=== PATIENT | female | born 1955 | race Caucasian/White ===

== ENCOUNTER 2016-10-14 16:02 | Emergency (ER) | payer OTHER ==
[2016-10-14 16:03] VITALS: O2SAT 93
[2016-10-14 16:24] VITALS: BP 146/82; PULSE 76; RESP 18; TEMP 98.3
== END 2016-10-14 17:00 | disposition home or self-care (01) ==
LOC: ED 16:02
DX: K08.89 Other specified disorders of teeth and supporting structures (principal)
CPT/HCPCS: 99282

== ENCOUNTER 2018-08-26 13:30 | Emergency (ER) | payer BC, OTHER ==
[2018-08-26] MEDS ORDERED: SODIUM CHLORIDE 0.9% FLUSH 10 ML SOL IV PRN (14:11)
[2018-08-26 14:26] LABS: INR 0.98 (0.86-1.12)
[2018-08-26 14:27] LABS: BASOPHILS % (AUTO) 1 % (0-3); EOSINOPHILS % (AUTO) 2 % (0-9); HEMATOCRIT 43 % (35-47); HEMOGLOBIN 14.8 gm/dl (12.0-15.5); LYMPHOCYTES % (AUTO) 28.3 % (10-50); MEAN CORPUSCULAR HEMOGLOBIN 31.1 pg (27.0-32.0); MEAN CORPUSCULAR HGB CONC 34.6 gm/dl (32.0-36.0); MEAN CORPUSCULAR VOLUME 90 fL (81-99); MONOCYTES % (AUTO) 5.8 % (0-12)
[2018-08-26 14:29] VITALS: TEMP 97.7
[2018-08-26 15:04] VITALS: BP 147/83; PULSE 63; RESP 22; O2SAT 93
== END 2018-08-26 15:16 | disposition home or self-care (01) ==
LOC: SUPCPDRO 13:30 → ED 13:30
DX: K22.70 Barrett's esophagus without dysplasia (principal); R06.02 Shortness of breath
CPT/HCPCS: 36415; 71045; 83880; 84484; 85025; 85378; 85610; 93005; 99283; 99284